=== PATIENT | female | born 1945 | race Caucasian/White ===

== ENCOUNTER 2016-12-30 11:48 | Day surgery (SDC) | payer MEDICARE, OTHER ==
--- NOTE | ~2016-12-30 | OP ---
Record Of Operation [facility] [address] [place]. 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 PROCEDURE: Superficial right parotidectomy. SURGEON: Brandon Currie M.D. PRODUCT ASSURANCE ENGINEER: Dr. Rutledge. ANESTHESIA: General endotracheal. ESTIMATED BLOOD LOSS: 5 mL. INTRAOPERATIVE FLUIDS: 1 liter of crystalloid. INTRAOPERATIVE FINDINGS: Tumor measuring approximately 12 mm in diameter in the deep lobe of the parotid gland lying between the upper and lower branches of the pes anserinus. Intraoperative frozen section confirmed the presence of a pleomorphic adenoma. The individual branches of the facial nerve stimulated well at the end of the operative procedure. The patient did, however, have a very mild panfacial weakness on the right side noted in the recovery room; however, this was relatively mild with complete closure of the right eye with light effort. OPERATIVE PROCEDURE: The patient was identified in the holding room and transported to the operating room. In the operating room, the patient was placed on the operating table in a supine position. Following induction of anesthesia, the patient was intubated without difficulty. A proposed incision was diagrammed with the preauricular incision lying in the preauricular crease. The postauricular extension of the incision was placed approximately 5 mm posterior to the postauricular crease. This area was then injected with 1% lidocaine with 1:100,000 epinephrine. Electrodes were placed for visualization of the NIM-2 stimulator throughout the operative procedure. The operative site was injected with 1% lidocaine with 1:100,000 epinephrine. The patient was prepped and draped in a sterile fashion. An incision was created through the aforementioned demarcated area. Dissection was carried down to the level of the subcutaneous tissues. Working anteriorly, dissection was carried down to the level of the parotid fascia. Dissection was carried superficial to the parotid fascia to the periphery of the parotid gland. Inferiorly, a branch appearing consistent with a posterior branch of the great auricular nerve was identified and dissected inferiorly. The nerve was preserved throughout the operative procedure. The parotid gland was then dissected from the sternocleidomastoid muscle and elevated anteriorly. The dissection carried deeply to the digastric muscle. Dissection was then carried along the tragal cartilage to the tragal pointer. The intervening soft tissue between the tragal pointer and the digastric muscle was carefully divided. Dissecting anterior and inferior to Record Of Operation [facility] [address] [place] [address] NAME: CORDELIA RAMOS : 49 STATUS : [facility] PAT#: [id number] AGE: 71 ADM/REG DATE : 12/30/16 MR#: [id number] REPORT SERV DATE: 12/30/16 DICTATED BY: BRANDON CURRIE DATE: 12/30/16 REPORT STATUS : Draft TRANSCRIBED BY: DANIEL DATE: 12/30/16 the tragal pointer, the main trunk of the facial nerve was identified. This was confirmed with stimulation with the NIM-2 stimulator. Dissection was then carried along the surface of the main trunk of the facial nerve. On feeling the tumor in the gland, it was apparent that the upper branch of the pes anserinus would need to be traced to achieve a margin superior to the tumor. The lower branch of the pes anserinus was identified and traced to the periphery of the gland. The lower branch of the pes anserinus was then dissected. The marginal mandibular branch of the facial nerve was dissected inferiorly. With protection of this nerve, the remaining soft tissue attachments to the parotid gland, posteriorly, were divided. The more superior branch of the lower division of the pes anserinus was then also traced to the periphery of the gland. There were no intervening branches identified between the lower branch of the pes anserinus above and the upper branch of the lower division as previously dissected. On palpating the tumor, it was evident that the tumor was resting between the divisions of the upper and lower pes anserinus in the deep lobe of the parotid gland. Using a combination of sharp and blunt dissection, the parotid tissue in this area was dissected free from the underlying muscle and fat. With the branches of the facial nerve well visualized, the remaining attachments of the capsule of the parotid gland along the periphery were divided. The specimen was removed and sent to surgical pathology for histologic evaluation. The wound was irrigated. Hemostasis was achieved with the use of the bipolar cautery. Stimulation of the individual branches of the facial nerve resulted in excellent contraction of the muscles throughout the divisions of the facial nerve on the right side. With the depth of dissection, I did opt to place a #7 round DIMITRY drain to the neck. The remnant of parotid tissue was sewn to the sternocleidomastoid muscle. The subcutaneous tissue were then reapproximated with interrupted buried 3-0 chromic suture. A running 5-0 Prolene suture was placed in a simple fashion for closure of the postauricular wound. A running 5-0 Prolene suture was placed in a subcuticular fashion for closure of the preauricular skin. Steri-Strips were applied to the wound. A face lift dressing was applied. The patient was subsequently awakened from anesthesia, extubated in the operating room, and transported to recovery room in good condition. The patient tolerated the procedure well. There were no apparent complications. Specimen included superficial lobe of the right parotid gland. HOLLIS/DANIEL Brandon Currie M.D. / [id number] CC: Trevor Alonzo M.D.
[~2016-12-30 11:48] MED LIST: NO HOME MEDS; VITAMIN D2000 UNIT PO
== END 2016-12-30 18:33 | disposition home or self-care (01) ==
LOC: SDC 11:48
PROVIDERS: Otolaryngology
PROC: 0CB80ZZ Excision of Right Parotid Gland, Open Approach (ICD-10-PCS; 2016-12-30)
PROC: 00BM0ZZ Excision of Facial Nerve, Open Approach (ICD-10-PCS; 2016-12-30)
PROC: 0CB80ZZ Excision of Right Parotid Gland, Open Approach (ICD-10-PCS; principal; 2016-12-30 13:15)
DX: D11.0 Benign neoplasm of parotid gland (principal); J34.2 Deviated nasal septum; R22.1 Localized swelling, mass and lump, neck; Z90.710 Acquired absence of both cervix and uterus; Z98.890 Other specified postprocedural states
CPT/HCPCS: 85014; 85018; 85730; 88307; 88331; 93005; A9270-GY; J0690; J1170; J2250; J2405; J2710; J3010